=== PATIENT | female | born 1945 | race Caucasian/White ===

== ENCOUNTER 2016-08-04 15:49 | Outpatient (CLI) ==
--- NOTE | 2016-08-04 16:26 | DI ---
EXAM: PA and lateral views of the chest HISTORY: Cough COMPARISON: 04/01/2009 FINDINGS: There is minimal left basilar atelectasis. No focal consolidation, pleural effusion or pneumothorax is seen. The cardiomediastinal silhouette is within normal limits. Remote right rib fractures are seen. IMPRESSION: No acute cardiopulmonary findings. Minimal left basilar atelectasis.
== END 2016-08-04 15:50 | disposition home or self-care (01) ==
LOC: RAD 15:49
PROVIDERS: ATTEND Family Medicine
DX: R05 Cough (principal)

== ENCOUNTER 2017-04-16 14:06 | Outpatient (CLI) ==
--- NOTE | 2017-04-16 14:29 | DI ---
EXAM: CHEST FRONTAL AND LATERAL VIEWS HISTORY: Cough. COMPARISON: 08/04/2016 FINDINGS: Heart size and mediastinal contour remain within normal limits. No acute infiltrates. Normal vascularity with no pleural fluid or pneumothorax. The bony thorax has no acute finding. IMPRESSION: No acute process.
== END 2017-04-16 14:07 | disposition home or self-care (01) ==
LOC: RAD 14:06
PROVIDERS: ATTEND Internal Medicine Pulmonary Disease
DX: R05 Cough (principal)

== ENCOUNTER 2018-08-09 15:03 | Outpatient (CLI) ==
--- NOTE | 2018-08-09 15:57 | DI ---
EXAM: Two views of the right hip. History: Right hip pain. Comparison: Pelvic radiograph 05/30/2015 Findings: No acute fracture or dislocation. No abnormal calcifications or radiopaque foreign bodies . The right hip joint space is preserved. Degenerative changes within the lower lumbar spine. Impression: No acute osseous abnormality
== END 2018-08-09 15:04 | disposition home or self-care (01) ==
LOC: RAD 15:03
PROVIDERS: ATTEND Family Medicine
DX: M25.551 Pain in right hip (principal)

== ENCOUNTER 2018-11-01 13:06 | Outpatient (RCR) | END 2018-11-10 23:59 | LOC: NEWBEG 13:06 | PROVIDERS: ATTEND Psychiatry & Neurology Psychiatry | DX: Z00.00 Encounter for general adult medical examination without abnormal findings (principal) ==